=== PATIENT | male | born 1985 | race Caucasian/White ===

== ENCOUNTER 2024-12-01 20:28 | Emergency (ER) | payer BC ==
[2024-12-01 21:16] LABS: Absolute Lymphocytes (CBC) 2.3 K/uL (0.7-4.9); Hematocrit 44.5 % (39.6-49.0); Hemoglobin 15.1 g/dL (13.6-17.9); MCH 28.6 pg (27.0-35.0); MCHC 33.9 g/dL (32.0-36.0); MCV 84.3 fL (80-100); MPV 7.8 fL (7.6-11.3); Nucleated RBC Absolute Count 0.0 (0-0); Nucleated Red Blood Cells % 0.1 % (0-0); RBC Red Blood Cell Count 5.27 M/uL (4.33-5.43); White Blood Count 10.00 thou/uL (4.3-10.9)
[2024-12-01 21:19] LABS: Urine Microscopic Reflex YN NO UMIC
[2024-12-01] MEDS ORDERED: DIAZEPAM 5 MG TABLET ONE (21:20)
[2024-12-01] MEDS ORDERED: HYDROCODONE/APAP 5/325 MG TAB ONE (21:20)
--- NOTE | 2024-12-01 21:20 | RAD REPORT ---
EXAMINATION: CT ABDOMEN AND PELVIS WITHOUT CONTRAST CLINICAL INDICATION: PAIN TECHNIQUE: CT abdomen and pelvis was performed, without IV contrast, as per department protocol. Axia l, sagittal and coronal reconstructions were obtained. One or more of the following dose reduction techniques were used: Automated exposure control, adjustment of the mA and kV according to the patien t size, and iterative reconstruction. Unless otherwise specified, incidental findings do not require dedicated imaging follow-up. COMPARISON: No prior exam. FINDINGS: The lack of intravenous contrast limits the sensitivity of this exam for evaluation of solid visceral organs, vascular structures, and retroperitoneum. LOWER CHEST: Mild scarring is seen in the right middle lobe. LIVER:Mild fatty liver is present. No focal lesion or biliary dilatation is seen. Grossly unremarka ble gallbladder. SPLEEN: Normal size. No focal lesion. PANCREAS: No mass, ductal dilation, or tessa-pancreatic fluid. ADRENALS: Normal; no mass. KIDNEYS AND URETERS: Normal size and contour. No hydronephrosis. URINARY BLADDER: Normal contour. GASTROINTESTINAL TRACT: No evidence of bowel obstruction, significant free fluid, free air or abscess . APPENDIX: Normal appendix. LYMPH NODES: No lymphadenopathy. MUSCULOSKELETAL: Mild multilevel spinal degenerative changes. ADDITIONAL FINDINGS: Small fat-containing right hernia. IMPRESSION: No acute abnormalities in the abdomen or pelvis, with evaluation limited by lack of IV contrast. Mild hepatomegaly with fatty liver.
--- NOTE | 2024-12-01 21:22 | RAD REPORT ---
EXAMINATION: CT LUMBAR SPINE WITHOUT CONTRAST CLINICAL INDICATION: Male, 39 years old. PAIN TECHNIQUE: Axial CT images were obtained through the lumbar spine in soft tissue and bone windows wit hout intravenous contrast. Coronal and Sagittal reformatted images were created from the data set. One or more of the following dose reduction techniques were used: Automated exposure control, adjustm ent of the mA and/ or kV according to patient size, and/or iterative reconstruction. Unless otherwise specified, incidental findings do not require dedicated imaging follow-up. COMPARISON: No prior exam. FINDINGS: For purposes of this dictation, it is assumed that there are 5 non rib-bearing lumbar type vertebrae, and the most caudal fully segmented lumbar vertebra is labeled L5. ALIGNMENT: The lumbar spine demonstrates normal alignment without scoliosis or spondylolisthesis. BONES: No significant soft tissue abnormalities. No aggressive osseous lesions. DISCS: Suspected disc herniation L5-S1. LEVELS: Probable canal stenosis L5-S1. SOFT TISSUE: No soft tissue abnormalities. IMPRESSION: No acute lumbar spine abnormalities. Suspected disc herniation with probable central canal stenosis L5-S1. Nonemergent MRI lumbar spine fo llow up suggested.
[2024-12-01 21:31] LABS: ALT/SGPT 59.0 U/L (16-61); AST/SGOT 26.0 U/L (15-37); Albumin 3.5 g/dL (3.4-5.0); Albumin/Globulin Ratio 0.9 (1.1-1.8); Alkaline Phosphatase 107.0 U/L (45-117); Anion Gap 8.0 mEq/L (5.0-15.0); BUN Blood Urea Nitrogen 13.0 mg/dL (7-18); Globulin 4.0 g/dL (2.3-3.5); Glucose Level 104.0 mg/dL (74-106); Potassium 4.0 mEq/L (3.5-5.1)
--- NOTE | 2024-12-01 21:39 | ER ---
Nurse's Notes [facility] Name: Mj Berger Age: 39 yrs Sex: Male : 1985 Arrival Date: 12/01/2024 Time: 20:28 Bed 19 Private MD: Diagnosis: Low back pain Presentation: 12/01 20:50 Chief complaint: Patient states: c/o pain from mid to lower back, worse on the right. me1 11/19. Reports hx of back pain but it is worse for the past 4 days. Reports he recently moved. Coronavirus screen: Vaccine status: Patient reports receiving the 2nd dose of the covid vaccine. Ebola Screen: No symptoms or risks identified at this time. Initial Sepsis Screen: Does the patient meet any 2 criteria? No. Patient's initial sepsis screen is negative. Does the patient have a suspected source of infection? No. Patient's initial sepsis screen is negative. Risk Assessment: Do you want to hurt yourself or someone else? Patient reports no desire to harm self or others. Onset of symptoms was November 27, 2024. 20:50 Method Of Arrival: Wheelchair me1 20:50 Acuity: SENTHIL 4 me1 Historical: - Allergies: 20:54 Sulfa (Sulfonamide Antibiotics); me1 20:54 Demerol; me1 - PMHx: 20:54 Gastroesophageal reflux disease; insomnia; Bipolar disorder; me1 - PSHx: 20:54 Vasectomy; me1 - Immunization history:: Adult Immunizations up to date. - Infectious Disease History:: Denies. - Social history:: Smoking status: Patient denies any tobacco usage or history of. Screenin:08 [facility] ED Fall Risk Assessment (Adult) History of falling in the last 3 months, al5 including since admission No falls in past 3 months (0 pts) Confusion or Disorientation No (0 pts) Intoxicated or Sedated No (0 pts) Impaired Gait No (0 pts) Mobility Assist Device Used No (0 pt) Altered Elimination No (0 pt) Score/Fall Risk Level 0 - 2 = Low Risk Oriented to surroundings, Maintained a safe environment, Hourly rounding (assess needs \T\ fall precautionary measures) done. Abuse screen: Denies threats or abuse. Denies injuries from another. Nutritional screening: No deficits noted. Tuberculosis screening: No symptoms or risk factors identified. Assessment: 21:09 General: Appears in no apparent distress. uncomfortable, Behavior is calm, cooperative. al5 Pain: Complains of pain in right flank and lumbar area. Neuro: Level of Consciousness is awake, alert, obeys commands, Oriented to person, place, time, situation. Cardiovascular: Patient's skin is warm and dry. Respiratory: Airway is patent Respiratory effort is even, unlabored, Respiratory pattern is regular, symmetrical. GI: No signs and/or symptoms were reported involving the gastrointestinal system. : Reports pain in right flank(s). EENT: No signs and/or symptoms were reported regarding the EENT system. Derm: Skin is intact, is healthy with good turgor, Skin is pink, warm \T\ dry. normal. Musculoskeletal: Circulation, motion, and sensation intact. Range of motion: intact in all extremities, Reports pain in lumbar area. 21:56 Reassessment: Patient appears in no apparent distress at this time. Patient and/or al5 family updated on plan of care and expected duration. Pain level reassessed. Patient is alert, oriented x 3, equal unlabored respirations, skin warm/dry/pink. discharge pending ride home Patient states feeling better. Vital Signs: 20:50 BP 135 / 83; Pulse 89; Resp 19; Temp 98.1; Pulse Ox 98% ; Weight 120.66 kg; Height 5 me1 ft. 8 in. ; Pain 10/10; 21:19 BP 117 / 75; Pulse 82; Resp 18; Pulse Ox 96% on R/A; al5 21:30 BP 111 / 66; Pulse 83; Resp 18; Pulse Ox 96% on R/A; al5 21:45 BP 130 / 70; Pulse 85; Resp 17; Pulse Ox 97% on R/A; al5 20:50 Body Mass Index 40.44 (120.66 kg, 172.72 cm) me1 20:50 Pain Scale: Adult me1 ED Course: 20:38 Patient arrived in ED. sj2 20:39 [facility]re[facility]. kb 20:39 Willem Flood MD is Attending Physician. kb 20:43 Jcalyn Thurman RN is Primary Nurse. al5 20:54 Triage completed. me1 20:54 Arm band placed on Patient placed in an exam room. me1 21:08 Stone Protocol In Process Unspecified. EDMS 21:08 Spine Lumbar Wo Con In Process Unspecified. EDMS 21:08 Patient has correct armband on for positive identification. Bed in low position. Call al5 light in reach. Side rails up X 1. Provided Education on: plan of care. 21:08 No provider procedures requiring assistance completed. Inserted saline lock: 22 gauge al5 in right hand, using aseptic technique. Blood collected. Flushed with 10 mL NS. 21:15 CT Stone Protocol In Process Unspecified. EDMS 21:59 IV discontinued, intact, bleeding controlled, No redness/swelling at site. Pressure al5 dressing applied. Administered Medications: 21:22 Drug: Diazepam PO 5 mg PO once Route: PO; al5 21:58 Follow up: Response: No adverse reaction; Pain is decreased al5 21:23 Drug: HYDROcodone-acetaminophen PO 5 mg-325 mg 1 tabs PO once Route: PO; al5 21:58 Follow up: Response: No adverse reaction; Pain is decreased al5 Medication: 21:09 VIS not applicable for this client. al5 Outcome: 21:38 Discharge ordered by . kb 22:10 Discharged to home via wheelchair, al5 22:10 Condition: good 22:10 Discharge instructions given to patient, Instructed on discharge instructions, follow up and referral plans. medication usage, Demonstrated understanding of instructions, follow-up care, medications, Prescriptions given X 2, 22:19 Patient left the ED. al5 Signatures: Dispatcher [employer] EDAnne Sommers, CYLINDER BLOCK HOLE RELINER-C CYLINDER BLOCK HOLE RELINER-Danica Desir RN RN me1 Jaclyn Thurman RN RN al5 Geo Sol 2
--- NOTE | 2024-12-01 21:39 | EDPHYS ---
Physician Documentation [facility] Name: Mj Berger Age: 39 yrs Sex: Male : 1985 Arrival Date: 12/01/2024 Time: 20:28 Bed 19 Private MD: ED Physician Willem Flood HPI: 12/01 20:59 This 39 yrs old White Male presents to ER via Wheelchair with complaints of Back Pain, kb Low Back Pain. 20:59 Patient is a 39-year-old male who presents for low back pain. States he has problems kb with his back chronically but this pain is different than normal. States he moved 2 weeks ago so has been having tailbone pain since then then 3 days ago started having pain in the lumbar area and the right side. Denies urinary symptoms, nausea, vomiting, diarrhea, abdominal pain. Historical: - Allergies: 20:54 Sulfa (Sulfonamide Antibiotics); me1 20:54 Demerol; me1 - PMHx: 20:54 Gastroesophageal reflux disease; insomnia; Bipolar disorder; me1 - PSHx: 20:54 Vasectomy; me1 - Immunization history:: Adult Immunizations up to date. - Infectious Disease History:: Denies. - Social history:: Smoking status: Patient denies any tobacco usage or history of. ROS: 20:58 Constitutional: As per HPI kb Exam: 20:58 Constitutional: This is a well developed, well nourished patient who is awake, alert, kb and in no acute distress. Head/Face: Normocephalic, atraumatic. ENT: Moist Mucous membranes Cardiovascular: Regular rate Respiratory: Respirations even and unlabored. No increased work of breathing. Talking in full sentences Abdomen/GI: Soft, non-tender. No distention Skin: Warm, dry with normal turgor. Normal color. MS/ Extremity: Pulses equal, no cyanosis. Neurovascular intact. Full, normal range of motion. Neuro: Awake and alert, GCS 15, oriented to person, place, time, and situation. 20:58 Back: pain, that is moderate, of the lumbar area and right flank, ROM is painful, with all movement, CVA tenderness, that is moderate, is noted on the right, Vital Signs: 20:50 BP 135 / 83; Pulse 89; Resp 19; Temp 98.1; Pulse Ox 98% ; Weight 120.66 kg; Height 5 me1 ft. 8 in. ; Pain 10; 21:19 BP 117 / 75; Pulse 82; Resp 18; Pulse Ox 96% on R/A; al5 21:30 BP 111 / 66; Pulse 83; Resp 18; Pulse Ox 96% on R/A; al5 21:45 BP 130 / 70; Pulse 85; Resp 17; Pulse Ox 97% on R/A; al5 20:50 Body Mass Index 40.44 (120.66 kg, 172.72 cm) me1 20:50 Pain Scale: Adult me1 MDM: 20:39 Medical Screening Exam initiated kb 21:37 Differential diagnosis: strain, fracture, sciatica, Herniated disc UTI. Data reviewed: kb vital signs, nurses notes. Counseling: I had a detailed discussion with the patient and/or guardian regarding the historical points, exam findings, and any diagnostic results supporting the discharge/admit diagnosis, lab results, radiology results, the need for outpatient follow up, a family practitioner, to return to the emergency department if symptoms worsen or persist or if there are any questions or concerns that arise at home. 12/01 20:47 Order name: CBC with Diff; Complete Time: 21:22 kb 12/01 20:47 Order name: CMP; Complete Time: 21:37 kb 12/01 20:47 Order name: UA Rfx Antione Cult if indicated; Complete Time: 21:22 kb 12/01 20:47 Order name: CT Stone Protocol kb 12/01 21:07 Order name: Stone Protocol; Complete Time: 21:22 EDMS 12/01 21:07 Order name: Spine Lumbar Wo Con; Complete Time: 21:23 EDMS 12/01 20:47 Order name: IV Saline Lock; Complete Time: 21:08 kb 12/01 20:47 Order name: Labs collected and sent; Complete Time: 21:08 kb Administered Medications: 21:22 Drug: Diazepam PO 5 mg PO once Route: PO; al5 21:58 Follow up: Response: No adverse reaction; Pain is decreased al5 21:23 Drug: HYDROcodone-acetaminophen PO 5 mg-325 mg 1 tabs PO once Route: PO; al5 21:58 Follow up: Response: No adverse reaction; Pain is decreased al5 Disposition: 23:09 Co-signature as Attending Physician, Willem Flood MD I reviewed the patient's care rn provided by the Advanced Practice Provider and agree with the diagnosis and treatment plan. Disposition Summary: 12/01/24 21:38 Discharge Ordered Notes: Location: Home kb Condition: Stable kb Diagnosis - Low back pain kb Followup: kb - With: Emergency Department - When: As needed - Reason: Worsening of condition Followup: kb - With: Private Physician - When: 2 - 3 days - Reason: Recheck today's complaints, Continuance of care, Re-evaluation by your physician Discharge Instructions: - Discharge Summary Sheet kb - Acute Back Pain, Adult kb - Herniated Disk, [id number] kb Forms: - Medication Reconciliation Form kb - Antibiotic Education kb - Prescription Opioid Use kb - Patient Portal Instructions kb - Leadership Thank You Letter kb Prescriptions: - Diclofenac Sodium 75 mg Oral tablet, delayed release (enteric coated) - take 1 tablet ORAL route 2 times per day As needed; 30 tablet; Refills: 0, kb Product Selection Permitted - orphenadrine citrate 100 mg Oral Tablet Sustained Release - take 1 tablet ORAL route 2 times per day As needed; 20 tablet; Refills: 0, kb Product Selection Permitted Signatures: Dispatcher [employer] EDAnne Sommers, OUTSIDE CUTTER-C OUTSIDE CUTTER-Ckb Willem Flood MD MD rn Eddleman, Michelle RN RN me1 Jaclyn Thurman RN RN al5
[2024-12-02 01:13] VITALS: TEMP 98.1
[2024-12-02 01:26] VITALS: BP 130/70; O2SAT 97
== END 2024-12-01 22:19 | disposition home or self-care (01) ==
LOC: ER 20:28
DX: M54.50 Low back pain, unspecified (principal); K21.9 Gastro-esophageal reflux disease without esophagitis; F31.9 Bipolar disorder, unspecified; G47.00 Insomnia, unspecified; Z88.2 Allergy status to sulfonamides; Z88.5 Allergy status to narcotic agent
CPT/HCPCS: 36415; 72131; 74176; 76377; 80053; 81003; 85025; 99284